=== PATIENT | male | born 1970 | race Caucasian/White ===

== ENCOUNTER 2016-06-19 14:33 | Emergency (ER) | payer SELFPAY ==
[~2016-06-19] VITALS: Ht 185.4 cm; Wt 112.0 kg
[~2016-06-19 14:33] MED LIST: HYDR-3533 PO
[2016-06-19 14:40] VITALS: BP 152/106; PULSE 110; RESP 18; TEMP 97.7; O2SAT 98
[2016-06-19] MEDS ORDERED: LIDOCAINE 2%/EPINEPHrine 1:100,000 30ML MDV INFIL ONE (16:00)
[2016-06-19] MEDS ORDERED: TRAM50TA PO (16:21)
[2016-06-19] MEDS ORDERED: CEPH-460 PO (16:24)
[2016-06-19] MEDS ORDERED: CYCL1TAB29 PO (16:24)
[2016-06-19] MEDS ORDERED: BACT800T5 PO (16:24)
--- NOTE | 2016-06-19 16:24 | PD ---
HPI Chief Complaint: Skin Problem Time Seen by Provider: 16:00 Travel History International Travel<30 days: No Contact w/Intl Traveler<30days: No Traveled to known affect area: No History of Present Illness HPI Patient is a 46-year-old male who presents emergency department for evaluation of an abscess to his back. Patient states the never approximately 3 weeks, getting progressively larger and more painful. He denies any fever or chills. He reports a history of the same approximately 8 months ago. He states the pain is a 10/10 and describes it as aching and throbbing. He also reports neck spasms due to the pain in his back. He denies any IV drug use. PFSH Past Medical History Hx Anticoagulant Therapy: No Anxiety: Yes Cardiovascular Problems: No Chemotherapy: No Cerebrovascular Accident: No Diabetes: No Diminished Hearing: No Hypertension: Yes Respiratory: No Immunizations Current: Yes Social History Alcohol Use: Yes (OCCASIONAL) Tobacco Use: Yes (1 PPD) Substance Use: Yes (HX OF REHAB FOR COCAINE USE) Allergies-Medications (Allergen,Severity, Reaction): Coded Allergies: No Known Allergies (Verified , 06/19/16) Reported Meds & Prescriptions Reported Meds & Active Scripts Active No Active Prescriptions or Reported Medications Review of Systems Except as stated in HPI: all other systems reviewed are Neg Musculoskeletal: Positive: Pain Skin: Positive Lumps Physical Exam Narrative GENERAL: Well-nourished, well-developed patient. SKIN: Warm and dry. 6 cm x 6 cm area of tenderness and fluctuance noted to the left upper back, mild erythema noted in the center approximately 1 cm in diameter. Moderately tender to palpation. HEAD: Normocephalic. EYES: No scleral icterus. No injection or drainage. NECK: Supple, trachea midline. No JVD or lymphadenopathy. CARDIOVASCULAR: Regular rate and rhythm without murmurs, gallops, or rubs. RESPIRATORY: Breath sounds equal bilaterally. No accessory muscle use. GASTROINTESTINAL: Abdomen soft, non-tender, nondistended. MUSCULOSKELETAL: No cyanosis, or edema. BACK: Nontender without obvious deformity. No CVA tenderness. Data Data Last Documented VS Vital Signs Date Time Temp Pulse Resp B/P Pulse Ox O2 Delivery O2 Flow Rate FiO2 06/19/16 14:40 97.7 110 18 152/106 98 Orders Wound Culture And Gram Stain (06/19/16 15:57) Lidocai-Epi 2%-1:100,000 Inj (Xylocaine- (06/19/16 16:00) [facility] Medical Decision Making Medical Screen Exam Complete: Yes Emergency Medical Condition: Yes Interpretation(s) Vital Signs Date Time Temp Pulse Resp B/P Pulse Ox O2 Delivery O2 Flow Rate FiO2 06/19/16 14:40 97.7 110 18 152/106 98 Differential Diagnosis Abscess versus cellulitis versus boil versus other Narrative Course Patient is a 46-year-old male who presents emergency department for evaluation of an abscess to his left upper back. Patient's history of the same. He is afebrile, his vital signs are stable, he was mildly tachycardic on initial presentation secondary to pain. His heart rate was reassessed at . please see procedure report for I&D. Patient be placed on antibiotics prophylactically, he was encouraged to return to emergency Department in 2 days to have packing removed. He was encouraged to return to keep arm sooner for any new or worsening symptoms. Patient verbalized understanding of these instructions. Patient is stable for discharge. Procedures Procedure Narrative After the risks and benefits were discussed the following procedure was performed: INCISION AND DRAINAGE OF ABSCESS: The area was prepped and was sterilely draped. A subcutaneous wheal of 2 % Xylocaine with a total number 2 mL was used to anesthetize the area. The area was properly anesthetized. A number 11 scalpel was used to make a 1 cm incision across the area of the abscess. Copious amounts of purulent drainage noted The abscess was drained an irrigated with normal saline. Quarter inch iodoform packing was placed in the wound. Sterile dressing applied. Patient advised to have packing removed in two days. Diagnosis Primary Impression: Abscess of back Referrals: Primary Care Physician Patient Instructions: Abscess (GEN), Abscess Follow-up (ED), Abscess Incision and Drainage (ED), General Instructions Additional Instructions: Return to emergency department in 48 hours to have packing removed Return to emergency department sooner for any new or worsening symptoms Follow-up with your primary doctor Take medications as directed Do not drive or operate heavy machinery while taking her chronic pain medication Med/Other Pt SpecificInfo: Prescription(s) given Scripts Cephalexin (Keflex)500 Mg [id number] Mg PO Q12H 10 Days Ref 0 Prov:Marizol Bryant 06/19/16 Sulfamethoxazole-Trimethoprim (Bactrim DS)800-160 Mg Tab1 Tab PO BID #20 TAB Ref 0 Prov:Marizol Bryant 06/19/16 Cyclobenzaprine (Flexeril)10 Mg Tab10 Mg PO TID PRN (MUSCLE SPASM) 7 Days Ref 0 Prov:Marizol Bryant 06/19/16 Tramadol 50 Mg Tab50 Mg PO Q6H PRN (PAIN) #12 TAB Ref 0 Prov:Jonathan Blake MD 06/19/16 Disposition: 01 DISCHARGE HOME Condition: Stable Marizol Bryant Jun 19, 2016 16:24
== END 2016-06-19 16:42 | disposition home or self-care (01) ==
LOC: PHED 14:33 → PHEFT 16:42
DX: L02.212 Cutaneous abscess of back [any part, except buttock and flank] (principal)
CPT/HCPCS: 10061

== ENCOUNTER 2016-12-09 18:02 | Emergency (ER) | payer SELFPAY ==
[~2016-12-09 18:02] MED LIST changes: +BACT800T5 PO; +CEPH-460 PO; +CYCL1TAB29 PO; -HYDR-3533 PO; +TRAM50TA PO
== END 2016-12-09 18:43 | disposition left against medical advice (07) ==
LOC: NEDAMB 18:02
DX: Z03.89 Encounter for observation for other suspected diseases and conditions ruled out (principal)
CPT/HCPCS: 99281